=== PATIENT | male | born 1955 | race Caucasian/White ===

== ENCOUNTER 2019-09-21 08:05 | Day surgery (SDC) | payer BC ==
[2019-09-18 17:07] LABS: BASOPHILS % (AUTO) 0.4 % (0-1); EOSINOPHILS # (AUTO) 0.1 X10'3 (0-0.9); LYMPHOCYTES # (AUTO) 1.9 X10'3 (1.1-4.8); LYMPHOCYTES % (AUTO) 28.8 % (21-51); MEAN CORPUSCULAR HEMOGLOBIN 28.8 PG (27.0-31.0); MEAN CORPUSCULAR HGB CONC 33.9 g/dL (33.0-36.5); MEAN CORPUSCULAR VOLUME 84.8 FL (78-98); MEAN PLATELET VOLUME 6.7 FL (7.4-10.4); MONOCYTES # (AUTO) 0.6 X10'3 (0-0.9); MONOCYTES % (AUTO) 8.4 % (2-12); NEUTROPHILS % (AUTO) 60.4 % (42-75); PRE OP HEMATOCRIT 43.7 % (42.0-52.0); PRE OP HEMOGLOBIN 14.8 g/dL (14.0-17.9); PRE OP PLATELET COUNT 202 X10'3 (140-440); RED BLOOD COUNT 5.15 X10'6 (4.70-6.10); RED CELL DISTRIBUTION WIDTH 13.6 % (11.5-14.5)
[2019-09-18 17:15] LABS: ALBUMIN 4.1 G/DL (3.4-5.0); ALBUMIN/GLOBULIN RATIO 1.2 (1.1-1.5); ALKALINE PHOSPHATASE 49 IU/L (46-116); BLOOD UREA NITROGEN 18 MG/DL (7-18); BUN/CREATININE RATIO 21.4 (5.4-32.0); CALCIUM 9.7 MG/DL (8.5-10.1); CHLORIDE 101 MMOL/L (99-107); CREATININE 0.84 MG/DL (0.60-1.10); PRE OP ALT 19 U/L (30-65); PRE OP ANION GAP 8 (8-16); PRE OP AST 14 U/L (10-37); PRE OP BILIRUB, TOTAL 0.5 MG/DL (0.0-1.0); PRE OP GLUCOSE 146 MG/DL (70-104); PRE OP SODIUM 140 MMOL/L (135-145); TOTAL CARBON DIOXIDE 31.1 MMOL/L (24-32); TOTAL PROTEIN 7.5 G/DL (6.4-8.2); eGFR > 90 ML/MIN
[2019-09-21] VITALS (7 sets, daily range): BP systolic 110–131; BP diastolic 72–82
[~2019-09-21] VITALS: Ht 182.9 cm; Wt 104.3 kg
[~2019-09-21 08:05] MED LIST: ASPI81TA30 PO; EMPA10TA PO; METF-438 PO; OMEP40CA13 PO; RAMI5CAP65 PO; ROSU20TA2 PO; SEMA1PEN; clindamycin 600mg/D5W 50ml 50 ML IV ONE; famotidine 20mg tablet PO ONE; ringers solution, lacted 1,000 ML IV SCH
[2019-09-21] MEDS ORDERED: ringers solution, lacted 1,000 ML IV SCH (08:49)
[2019-09-21] MEDS ORDERED: meperidine/PF 25mg/ml syringe IV PRN ×3 (08:50)
[2019-09-21] MEDS ORDERED: proCHLORperazine 10 MG/2 ml inj IV PRN (08:50)
[2019-09-21] MEDS ORDERED: morphine 4 MG/ML inj SYRINge IV PRN ×2 (08:50)
[2019-09-21] MEDS ORDERED: ondansetron/PF 4mg/2ml inj IV PRN (08:50)
[2019-09-21] MEDS ORDERED: LIDOcaine 1% 30ml preserv. free vial ONE (10:37)
[2019-09-21] MEDS ORDERED: BUPIVAcaine/PF 2.5 mg/ml (0.25%) 30ml vial ONE (11:26)
[2019-09-21] MEDS ORDERED: fentaNYL/PF 50MCG/1 ML 2ML syringe ONE (11:40)
[2019-09-21] MEDS ORDERED: MIDAZolam 5mg/5ml vial ONE (11:40)
--- NOTE | 2019-09-21 12:25 | NUR ---
Received from OR via BED, accompanied by Anesthesiologist DR LONG and report given by Anesthesiolgist. PATIENT A&OX4, DENIES PAIN, V/S WNL, NEUROVASCULAR CHECKS INTACT, 20G PIV LUE, SCD ON, DRESSING TO RIGHT ELBOW AND WRIST CDI ELEVATED WITH ICEBAG APPLIED.
--- NOTE | 2019-09-21 13:15 | NUR ---
PATIENT A&OX4, DENIES PAIN, V/S WNL, NEUROVASCULAR CHECKS INTACT, 20G PIV LUE D/C, SCD OFF, DRESSING TO RIGHT WRIST AND ELBOW CDI ELEVATED WITH ICEBAG APPLIED. I HAVE REVIEWED D/C INSTRUCTIONS WITH PATIENT AND FAMILY AND THEY HAVE VERBALIZED UNDERSTANDING. PATIENT D/C HOME WITH ALL BELONGINGS AND FAMILY GAVE TRANSPORT HOME.
== END 2019-09-21 13:15 | disposition home or self-care (01) ==
LOC: PAS 08:05 → EDSTATUS 11:00 → PAS 13:15
PROVIDERS: ATTEND Orthopaedic Surgery Hand Surgery
DX: G56.01 Carpal tunnel syndrome, right upper limb (principal); G56.21 Lesion of ulnar nerve, right upper limb; I10 Essential (primary) hypertension; E11.9 Type 2 diabetes mellitus without complications; K21.9 Gastro-esophageal reflux disease without esophagitis; Z98.890 Other specified postprocedural states; Z90.49 Acquired absence of other specified parts of digestive tract; Z96.642 Presence of left artificial hip joint; Z88.0 Allergy status to penicillin; Z88.8 Allergy status to other drugs, medicaments and biological substances; Z79.899 Other long term (current) drug therapy; Z72.89 Other problems related to lifestyle
CPT/HCPCS: 29848; 36415; 64718; 80053; 82948; 85025; 93005; J2001; J2250; J3010; J3490; A4215; A6449; J7120

== ENCOUNTER 2021-08-27 15:45 | Emergency (ER) | payer MEDICARE, BC ==
[~2021-08-27] VITALS: Ht 182.9 cm; Wt 96.4 kg
[~2021-08-27 15:45] MED LIST changes: -OMEP40CA13 PO; +OMEP40CA21 PO; -clindamycin 600mg/D5W 50ml 50 ML IV ONE; -famotidine 20mg tablet PO ONE; -ringers solution, lacted 1,000 ML IV SCH
[2021-08-27] MEDS ORDERED: dexamethasone 4mg tablet PO ONE (17:15)
[2021-08-27] MEDS ORDERED: BAMLANIVIMAB 700mg/20ml inj. 700 MG, ETESEVIMAB 700mg/20mL inj. 1,400 MG in normal sali... IV ONE (17:15)
[2021-08-27] MEDS ORDERED: DEXA6TAB6 PO (17:42)
[2021-08-27 19:43] VITALS: BP 124/76
== END 2021-08-27 19:36 | disposition home or self-care (01) ==
LOC: ER 15:47
DX: U07.1 COVID-19 (principal); R09.89 Other specified symptoms and signs involving the circulatory and respiratory systems; R09.81 Nasal congestion; R05.9 Cough, unspecified; E11.9 Type 2 diabetes mellitus without complications; Z88.0 Allergy status to penicillin; Z88.1 Allergy status to other antibiotic agents; Z79.82 Long term (current) use of aspirin; Z79.899 Other long term (current) drug therapy
CPT/HCPCS: 99284; M0245; Q0245; Q0239

== ENCOUNTER 2025-01-09 16:09 | Outpatient (CLI) | payer MEDICARE, BC ==
[~2025-01-09 16:09] MED LIST changes: -EMPA10TA PO; +EMPA25TA PO; +ERGO400C PO; +EZET10TA48 PO; +FENO200C22 PO; +MELO-102 PO; +NITR0.4T48 PO; +OMEP20CA16 PO; -OMEP40CA21 PO; +PIOG45TA65 PO; +RAMI10CA78 PO; -RAMI5CAP65 PO; -ROSU20TA2 PO; +ROSU5TAB51 PO; -SEMA1PEN; +TIRZ10PE SUBCUT; +VITE1000C PO
[2025-01-10] MEDS ORDERED: MAGNESIUM PO (12:28)
[2025-01-10] MEDS ORDERED: LIONS MANE MUSHROOM PO (12:28)
[2025-01-10] MEDS ORDERED: ASPI81TA52 PO (19:40)
[2025-01-10] MEDS ORDERED: MAGN200T PO (20:47)
== END 2025-01-09 23:59 | disposition home or self-care (01) ==
LOC: RAD 16:09
PROVIDERS: ATTEND Physician Assistant Surgical
DX: R06.02 Shortness of breath (principal)
CPT/HCPCS: 71046